=== PATIENT | female | born 1960 | race Hispanic/Latino ===

== ENCOUNTER 2018-01-13 10:30 | Emergency (ER) | payer BC ==
--- NOTE | 2018-01-13 12:16 | RAD REPORT ---
EXAM DESCRIPTION: RAD - Knee Right 3 View - 01/13/2018 11:55 am CLINICAL HISTORY: PAIN COMPARISON: No comparisons FINDINGS: Prominent tricompartmental osteoarthritic changes are noted greatest in the medial joint c ompartment and the patellofemoral joint. No fracture or dislocation is seen.
--- NOTE | 2018-01-13 12:24 | ER ---
Nurse's Notes [facility] Name: Smiley Sargent Age: 57 yrs Sex: Female : 1960 Arrival Date: 01/13/2018 Time: 10:32 Bed 30 Private MD: Chelle Ramirez H Diagnosis: Pain in right knee;Effusion, right knee Presentation: 01/13 10:38 Presenting complaint: Patient states: pain to R knee when stepped out of car started ch yesterday at 1430. since then the pain radiates up my thigh, into my lower back. I am liping because it hurts so much. Transition of care: patient was not received from another setting of care. Onset of symptoms was January 12, 2018 at 14:30. Risk Assessment: Do you want to hurt yourself or someone else? Patient reports no desire to harm self or others. Initial Sepsis Screen: Does the patient meet any 2 criteria? No. Patient's initial sepsis screen is negative. Does the patient have a suspected source of infection? No. Patient's initial sepsis screen is negative. Care prior to arrival: None. 10:38 Method Of Arrival: Ambulatory 10:38 Acuity: ARAM 4 Triage Assessment: 10:41 General: Appears in no apparent distress. comfortable, Behavior is calm, cooperative, ch appropriate for age. Pain: Complains of pain in low back area and right leg Pain currently is 7 out of 10 on a pain scale. Musculoskeletal: Circulation, motion, and sensation intact. Historical: - Allergies: 10:41 No Known Allergies; - Home Meds: 10:41 Excedrin Migraine 250-250-65 mg oral tab [Active]; Effexor Oral [Active]; losartan 25 ch mg oral tab 1 tab once daily [Active]; glimepiride 1 mg Oral tab 1 tab once daily [Active]; farciga-pill for blood sugar [Active]; - PMHx: 10:41 Diabetes - NIDDM; Hypertension; Depression; - PSHx: 10:41 Hysterectomy; ; Tennis elbow R; gastrib bypass; ch - Immunization history:: Adult Immunizations up to date, Flu vaccine is not up to date. - Social history:: Smoking status: Patient/guardian denies using tobacco, Patient uses alcohol, occasionally. - Ebola Screening: : Patient negative for fever greater than or equal to 101.5 degrees Fahrenheit, and additional compatible Ebola Virus Disease symptoms Patient denies exposure to infectious person Patient denies travel to an Ebola-affected area in the 21 days before illness onset No symptoms or risks identified at this time. - Family history:: not pertinent. Screenin:45 Abuse screen: Denies threats or abuse. Denies injuries from another. Nutritional iw screening: No deficits noted. Tuberculosis screening: No symptoms or risk factors identified. Fall Risk None identified. Assessment: 12:00 General: Appears in no apparent distress. comfortable, Behavior is calm, cooperative. iw Pain: Complains of pain in right knee. Neuro: Level of Consciousness is awake, alert, obeys commands, Oriented to person, place, time, situation. Cardiovascular: Patient's skin is warm and dry. Respiratory: Respiratory effort is even, unlabored. Derm: Skin is pink, warm \T\ dry. normal. Musculoskeletal: Range of motion: limited in right knee. Vital Signs: 10:41 BP 145 / 87; Pulse 78; Resp 16; Temp 97.8; Pulse Ox 99% on R/A; Weight 72.57 kg; Height ch 5 ft. 1 in. (154.94 cm); Pain 7/10; 10:41 Body Mass Index 30.23 (72.57 kg, 154.94 cm) ch ED Course: 10:32 Patient arrived in ED. sb2 10:33 Chelle Ramirez DO is Private Physician. sb2 10:39 Triage completed. ch 10:41 Arm band placed on left wrist. Patient placed in waiting room. ch 11:21 Didier Jacob MD is Attending Physician. caesar 11:33 Mari Lackey, PAUL is Primary Nurse. iw 11:55 XRAY Knee RIGHT 3 view In Process Unspecified. EDMS 12:00 Patient has correct armband on for positive identification. iw 12:23 Chelle Ramirez DO is Referral Physician. caesar 12:23 Cesar Proctor MD is Referral Physician. caesar 12:46 No provider procedures requiring assistance completed. Patient did not have IV access iw during this emergency room visit. Administered Medications: 12:40 Drug: Motrin 400 mg Route: PO; iw Outcome: 12:24 Discharge ordered by . caesar 12:47 Discharged to home ambulatory, with crutches, with family. iw 12:47 Condition: good 12:47 Discharge instructions given to patient, Instructed on discharge instructions, follow up and referral plans. medication usage, crutch walking, Demonstrated understanding of instructions, follow-up care, medications, crutch walking, Prescriptions given X 2. 12:48 Patient left the ED. iw Signatures: Dispatcher [employer] EDDanielle Kumar, Didier Cooper RN, ch, MD MD cha Williams, Irene, RN RN Chloé Thompson sb2
--- NOTE | 2018-01-13 12:25 | EDPHYS ---
Physician Documentation [facility] Name: Smiley Sargent Age: 57 yrs Sex: Female : 1960 Arrival Date: 01/13/2018 Time: 10:32 Bed 30 Private MD: Chelle Ramirez H ED Physician Didier Jacob HPI: 01/13 12:19 This 57 yrs old Female presents to ER via Ambulatory with complaints of Back caesar Pain, Leg Pain. 12:19 The patient presents with pain that is acute. caesar 12:20 The complaints affect the right knee. Context: The problem was sustained on a street or [facility] driveway. Onset: The symptoms/episode began/occurred yesterday. Modifying factors: The symptoms are alleviated by elevating leg, remaining still. Associated signs and symptoms: The patient has no apparent associated signs or symptoms. Onset: The symptoms/episode began/occurred yesterday. Historical: - Allergies: 10:41 No Known Allergies; ch - Home Meds: 10:41 Excedrin Migraine 250-250-65 mg oral tab [Active]; Effexor Oral [Active]; losartan 25 ch mg oral tab 1 tab once daily [Active]; glimepiride 1 mg Oral tab 1 tab once daily [Active]; farciga-pill for blood sugar [Active]; - PMHx: 10:41 Diabetes - NIDDM; Hypertension; Depression; ch - PSHx: 10:41 Hysterectomy; ; Tennis elbow R; gastrib bypass; ch - Immunization history:: Adult Immunizations up to date, Flu vaccine is not up to date. - Social history:: Smoking status: Patient/guardian denies using tobacco, Patient uses alcohol, occasionally. - Ebola Screening: : Patient negative for fever greater than or equal to 101.5 degrees Fahrenheit, and additional compatible Ebola Virus Disease symptoms Patient denies exposure to infectious person Patient denies travel to an Ebola-affected area in the 21 days before illness onset No symptoms or risks identified at this time. - Family history:: not pertinent. ROS: 12:20 Constitutional: Negative for fever, chills, and weight loss, Eyes: Negative for injury, caesar pain, redness, and discharge, ENT: Negative for injury, pain, and discharge, Neck: Negative for injury, pain, and swelling, Cardiovascular: Negative for chest pain, palpitations, and edema, Respiratory: Negative for shortness of breath, cough, wheezing, and pleuritic chest pain, Abdomen/GI: Negative for abdominal pain, nausea, vomiting, diarrhea, and constipation, Back: Negative for injury and pain, : Negative for injury, bleeding, discharge, and swelling, Skin: Negative for injury, rash, and discoloration, Neuro: Negative for headache, weakness, numbness, tingling, and seizure, Psych: Negative for depression, anxiety, suicide ideation, homicidal ideation, and hallucinations, Allergy/Immunology: Negative for hives, rash, and allergies, Endocrine: Negative for neck swelling, polydipsia, polyuria, polyphagia, and marked weight changes, Hematologic/Lymphatic: Negative for swollen nodes, abnormal bleeding, and unusual bruising. 12:20 MS/extremity: Positive for decreased range of motion, pain, swelling, tenderness, of the right knee. Exam: 12:20 Constitutional: This is a well developed, well nourished patient who is awake, alert, caesar and in no acute distress. Head/Face: Normocephalic, atraumatic. Eyes: Pupils equal round and reactive to light, extra-ocular motions intact. Lids and lashes normal. Conjunctiva and sclera are non-icteric and not injected. Cornea within normal limits. Periorbital areas with no swelling, redness, or edema. ENT: Nares patent. No nasal discharge, no septal abnormalities noted. Tympanic membranes are normal and external auditory canals are clear. Oropharynx with no redness, swelling, or masses, exudates, or evidence of obstruction, uvula midline. Mucous membranes moist. Neck: Trachea midline, no thyromegaly or masses palpated, and no cervical lymphadenopathy. Supple, full range of motion without nuchal rigidity, or vertebral point tenderness. No Meningismus. Chest/axilla: Normal chest wall appearance and motion. Nontender with no deformity. No lesions are appreciated. Cardiovascular: Regular rate and rhythm with a normal S1 and S2. No gallops, murmurs, or rubs. Normal PMI, no JVD. No pulse deficits. Respiratory: Lungs have equal breath sounds bilaterally, clear to auscultation and percussion. No rales, rhonchi or wheezes noted. No increased work of breathing, no retractions or nasal flaring. Abdomen/GI: Soft, non-tender, with normal bowel sounds. No distension or tympany. No guarding or rebound. No evidence of tenderness throughout. Back: No spinal tenderness. No costovertebral tenderness. Full range of motion. Female : Normal external genitalia. Skin: Warm, dry with normal turgor. Normal color with no rashes, no lesions, and no evidence of cellulitis. Neuro: Awake and alert, GCS 15, oriented to person, place, time, and situation. Cranial nerves II-XII grossly intact. Motor strength 5/5 in all extremities. Sensory grossly intact. Cerebellar exam normal. Normal gait. Psych: Awake, alert, with orientation to person, place and time. Behavior, mood, and affect are within normal limits. 12:20 Musculoskeletal/extremity: ROM: full active range of motion, full passive range of motion, limited active range of motion due to pain, limited passive range of motion due to pain, Circulation is intact in all extremities. Sensation intact. Compartment Syndrome exam of affected extremity: is normal. DVT Exam: negative Homans' sign noted on exam, no appreciated bluish discoloration, no erythema, no increased warmth, pain, swelling, tenderness, of the right knee. Vital Signs: 10:41 BP 145 / 87; Pulse 78; Resp 16; Temp 97.8; Pulse Ox 99% on R/A; Weight 72.57 kg; Height ch 5 ft. 1 in. (154.94 cm); Pain 7/10; 10:41 Body Mass Index 30.23 (72.57 kg, 154.94 cm) MDM: 11:21 Patient medically screened. [facility] 01/13 10:43 Order name: XRAY Knee RIGHT 3 view; Complete Time: 12:17 01/13 10:43 Order name: Ice pack; Complete Time: 10:43 01/13 12:19 Order name: Knee Immobilizer; Complete Time: 12:47 [facility] 01/13 12:19 Order name: Crutches; Complete Time: 12:47 [facility] Administered Medications: 12:40 Drug: Motrin 400 mg Route: PO; Disposition: 01/13/18 12:24 Discharged to Home. Impression: Pain in right knee, Effusion, right knee. - Condition is Stable. - Discharge Instructions: Joint Pain, Arthritis, Knee Effusion, Knee Pain, Knee Effusion, [id number], Arthritis, [id number]. - Prescriptions for Tylenol- Codeine #3 300-30 mg Oral Tablet - take 2 tablets by ORAL route every 6 hours As needed; 26 tablet. Motrin IB 200 mg Oral Tablet - take 2 tablet by ORAL route every 6 hours As needed as needed with food; 30 tablet. - Medication Reconciliation Form, Thank You Letter, Antibiotic Education, Prescription Opioid Use form. - Follow up: Chelle Ramirez DO; When: 2 - 3 days; Reason: Recheck today's complaints, Continuance of care, Re-evaluation by your physician. Follow up: Cesar Proctor MD; When: 2 - 3 days; Reason: Recheck today's complaints, Re-evaluation by your physician. - Problem is new. - Symptoms have improved. Signatures: Dispatcher [employer] EDDanielle Kumar, PAUL RN Didier Fay MD MD cha Williams, Irene, RN RN iw Corrections: (The following items were deleted from the chart) 12:48 12:24 01/13/2018 12:24 Discharged to Home. Impression: Pain in right knee; Effusion, iw right knee. Condition is Stable. Forms are Medication Reconciliation Form, Thank You Letter, Antibiotic Education, Prescription Opioid Use. Follow up: Chelle Ramirez; When: 2 - 3 days; Reason: Recheck today's complaints, Continuance of care, Re-evaluation by your physician. Follow up: Cesar Proctor; When: 2 - 3 days; Reason: Recheck today's complaints, Re-evaluation by your physician. Problem is new. Symptoms have improved. caesar
[2018-01-13] MEDS ORDERED: IBUPROFEN 400 MG TAB ONE (12:40)
== END 2018-01-13 12:48 | disposition home or self-care (01) ==
LOC: ER 10:30
DX: M25.461 Effusion, right knee (principal); I10 Essential (primary) hypertension; E11.9 Type 2 diabetes mellitus without complications; F32.9 Major depressive disorder, single episode, unspecified
CPT/HCPCS: 99284

== ENCOUNTER 2018-09-27 16:53 | Emergency (ER) | payer BC ==
--- NOTE | 2018-09-27 17:02 | EDPHYS ---
Physician Documentation [facility] Name: Smiley Sargent Age: 57 yrs Sex: Female : 1960 Arrival Date: 09/27/2018 Time: 16:54 Bed 12 Private MD: Chelle Ramirez H ED Physician Kashif Pyle HPI: 09/27 17:04 This 57 yrs old Female presents to ER via Ambulatory with complaints of kb Medication Refill. 17:04 The patient presents to the emergency department requesting refill(s) for: Effexor. The kb patient chronically suffers from anxiety and depression. The patient has experienced similar episodes in the past. The patient has not recently seen a physician. Pt reports she was seen by Dr Ramirez for a regular check-up and normally he writes all of her medications for 6 months until her next visit. States he forgot to fill her effexor so she ran out on . The pharmacy called his office for a refill on and Saturday, but he didn't respond. She made an appt for Saturday, but is having anxiety now and needs the medication. States she has been in [place] for the last month because her 2 sisters there 9 days apart and just returned on Saturday. Pt has been taking effexor for 14 years. currently takes 150mg per day. Historical: - Allergies: 17:00 No Known Allergies; sg - PMHx: 17:00 Depression; Diabetes - NIDDM; Hypertension; sg - Immunization history:: Adult Immunizations up to date. - Social history:: Smoking status: Patient/guardian denies using tobacco. - Ebola Screening: : Patient negative for fever greater than or equal to 101.5 degrees Fahrenheit, and additional compatible Ebola Virus Disease symptoms Patient denies exposure to infectious person Patient denies travel to an Ebola-affected area in the 21 days before illness onset No symptoms or risks identified at this time. ROS: 17:04 Constitutional: Negative for fever, chills, and weight loss, Neck: Negative for injury, kb pain, and swelling, Cardiovascular: Negative for chest pain, palpitations, and edema, Respiratory: Negative for shortness of breath, cough, wheezing, and pleuritic chest pain, Abdomen/GI: Negative for abdominal pain, nausea, vomiting, diarrhea, and constipation, Back: Negative for injury and pain, : Negative for injury, bleeding, discharge, and swelling, MS/Extremity: Negative for injury and deformity, Skin: Negative for injury, rash, and discoloration, Neuro: Negative for headache, weakness, numbness, tingling, and seizure. 17:04 Psych: Positive for anxiety, Negative for depression, drug dependence, alcohol dependence, auditory hallucinations, visual hallucinations, homicidal ideation, insomnia, suicide gesture, suicidal ideation. Exam: 17:04 Head/Face: Normocephalic, atraumatic. ENT: Nares patent. No nasal discharge, no kb septal abnormalities noted. Tympanic membranes are normal and external auditory canals are clear. Oropharynx with no redness, swelling, or masses, exudates, or evidence of obstruction, uvula midline. Mucous membranes moist. Neck: Trachea midline, no thyromegaly or masses palpated, and no cervical lymphadenopathy. Supple, full range of motion without nuchal rigidity, or vertebral point tenderness. No Meningismus. Chest/axilla: Normal chest wall appearance and motion. Nontender with no deformity. No lesions are appreciated. Cardiovascular: Regular rate and rhythm with a normal S1 and S2. No gallops, murmurs, or rubs. Normal PMI, no JVD. No pulse deficits. Respiratory: Lungs have equal breath sounds bilaterally, clear to auscultation and percussion. No rales, rhonchi or wheezes noted. No increased work of breathing, no retractions or nasal flaring. Abdomen/GI: Soft, non-tender, with normal bowel sounds. No distension or tympany. No guarding or rebound. No evidence of tenderness throughout. Skin: Warm, dry with normal turgor. Normal color with no rashes, no lesions, and no evidence of cellulitis. MS/ Extremity: Pulses equal, no cyanosis. Neurovascular intact. Full, normal range of motion. Neuro: Awake and alert, GCS 15, oriented to person, place, time, and situation. Cranial nerves II-XII grossly intact. Motor strength 5/5 in all extremities. Sensory grossly intact. Cerebellar exam normal. Normal gait. 17:04 Constitutional: The patient appears anxious, tearful Vital Signs: 16:59 BP 155 / 100; Pulse 81; Resp 17 S; Temp 98.3; Pulse Ox 98% on R/A; sg MDM: 16:55 Patient medically screened. kb 17:09 Data reviewed: vital signs, nurses notes. Data interpreted: Pulse oximetry: on room air kb is 98 %. Interpretation: normal. Counseling: I had a detailed discussion with the patient and/or guardian regarding: the historical points, exam findings, and any diagnostic results supporting the discharge/admit diagnosis, the need for outpatient follow up, a family practitioner, to return to the emergency department if symptoms worsen or persist or if there are any questions or concerns that arise at home. ED course: Pt educated to keep appt with Dr Ramirez on Saturday for medication refill. Pt given prescription for 4 days worth of effexor until she is able to get the new prescription filled. . Administered Medications: No medications were administered Disposition: 22:14 Co-signature as Attending Physician, Kashif Pyle MD Available for consultation at ps1 all times . Disposition: 09/27/18 17:01 Discharged to Home. Impression: Encounter for issue of repeat prescription. - Condition is Stable. - Discharge Instructions: Medicine Refill at the Emergency Department. - Prescriptions for Effexor XR 150 mg Oral capsule,extended release 24hr - take 1 capsule by ORAL route once daily; 4 capsule. - Medication Reconciliation Form, Thank You Letter, Antibiotic Education, Prescription Opioid Use form. - Follow up: Emergency Department; When: As needed; Reason: Worsening of condition. Follow up: Chelle Ramirez DO; When: 1 - 2 days; Reason: Recheck today's complaints, Continuance of care, Re-evaluation by your physician. Signatures: Addis Nguyen FNP-C FNP-Moiz Eli RN RN sg Smirch, Shelby, RN RN ss Singer, Phillip, MD MD ps1 Corrections: (The following items were deleted from the chart) 17:11 17:04 Pt reports she was seen by Dr Ramirez for a regular check-up and normally he writes kb all of her medications for 6 months until her next visit. States he forgot to fill her effexor so she ran out on . The pharmacy called his office for a refill on and Saturday, but he didn't respond. She made an appt for Saturday, but is having anxiety now and needs the medication. States she has been in [place] for the last month because her 2 sisters there 9 days apart and just returned on Saturday. . kb 17:43 17:01 09/27/2018 17:01 Discharged to Home. Impression: Encounter for issue of repeat ss prescription. Condition is Stable. Forms are Medication Reconciliation Form, Thank You Letter, Antibiotic Education, Prescription Opioid Use. Follow up: Emergency Department; When: As needed; Reason: Worsening of condition. Follow up: Chelle Ramirez; When: 1 - 2 days; Reason: Recheck today's complaints, Continuance of care, Re-evaluation by your physician. kb
--- NOTE | 2018-09-27 17:02 | ER ---
Nurse's Notes [facility] Name: Smiley Sargent Age: 57 yrs Sex: Female : 1960 Arrival Date: 09/27/2018 Time: 16:54 Bed 12 Private MD: Chelle Ramirez H Diagnosis: Encounter for issue of repeat prescription Presentation: 09/27 16:56 Presenting complaint: Patient states: I ran out of my Effexor medication, I spoke with sg about having my prescription refilled, I ran out of the medication on . I have been taking this medication for 14 years. Has an appointment on Saturday with to have the prescription refilled just concerned that because she has been out of the medication she wont be able to make it until saturday. Transition of care: patient was not received from another setting of care. Onset of symptoms was September 27, 2018. Risk Assessment: Do you want to hurt yourself or someone else? Patient reports no desire to harm self or others. Initial Sepsis Screen: Does the patient meet any 2 criteria? No. Patient's initial sepsis screen is negative. Does the patient have a suspected source of infection? No. Patient's initial sepsis screen is negative. Care prior to arrival: None. 16:56 Method Of Arrival: Ambulatory sg 16:56 Acuity: ARAM 5 sg Historical: - Allergies: 17:00 No Known Allergies; sg - PMHx: 17:00 Depression; Diabetes - NIDDM; Hypertension; sg - Immunization history:: Adult Immunizations up to date. - Social history:: Smoking status: Patient/guardian denies using tobacco. - Ebola Screening: : Patient negative for fever greater than or equal to 101.5 degrees Fahrenheit, and additional compatible Ebola Virus Disease symptoms Patient denies exposure to infectious person Patient denies travel to an Ebola-affected area in the 21 days before illness onset No symptoms or risks identified at this time. Vital Signs: 16:59 BP 155 / 100; Pulse 81; Resp 17 S; Temp 98.3; Pulse Ox 98% on R/A; sg ED Course: 16:54 Patient arrived in ED. as 16:54 Chelle Ramirez DO is Private Physician. as 16:55 Addis [facility]C [facility]. kb 16:55 Kashif Pyle MD is Attending Physician. kb 16:56 Arm band placed on. sg 16:59 Triage completed. sg 17:00 Chelle Ramirez DO is Referral Physician. kb 17:43 Lena Foley, PAUL is Primary Nurse. ss Administered Medications: No medications were administered Outcome: 17:01 Discharge ordered by MD. kb 17:43 Patient left the ED. ss Signatures: Addis Nguyen FNP-C FNP-Ckb Gay, Steven, RN RN Vanessa Napier as Lena Foley, PAUL RN ss
== END 2018-09-27 17:43 | disposition home or self-care (01) ==
LOC: ER 16:53
DX: Z76.0 Encounter for issue of repeat prescription (principal); F32.9 Major depressive disorder, single episode, unspecified; E11.9 Type 2 diabetes mellitus without complications; I10 Essential (primary) hypertension
CPT/HCPCS: 99281

== ENCOUNTER 2019-10-16 10:44 | Emergency (ER) | payer BC ==
--- NOTE | 2019-10-16 12:20 | RAD REPORT ---
EXAM DESCRIPTION: CTSpine Lumbar Wo Con10/16/2019 12:04 pm CLINICAL HISTORY: Back injury with back pain and radiculopathy status post fall COMPARISON: None TECHNIQUE: Computed axial tomography lumbar spine was obtained with coronal and sagittal reconstruct ion. All CT scans are performed using dose optimization technique as appropriate and may include automated exposure control or mA/KV adjustment according to patient size. FINDINGS: No fracture is seen. No dislocation is noted. Spondylosis involves L4-5 consisting of small disc bulge and facet hypertrophy. Vacuum phenomena invo lves the facet joints. Vacuum phenomena L5-S1 disc No spinal stenosis IMPRESSION: Negative for a lumbar fracture. If patient continues have symptoms to suggest spinal canal pathology MRI would be recommended
--- NOTE | 2019-10-16 12:23 | RAD REPORT ---
EXAM DESCRIPTION: CTThoracic Spine W/o Cont10/16/2019 12:00 pm CLINICAL HISTORY: Back injury with Back pain with radiculopathy status post fall COMPARISON: None TECHNIQUE: Computed axial tomography of thoracic spine was obtained with coronal and sagittal recons truction. All CT scans are performed using dose optimization technique as appropriate and may include automated exposure control or mA/KV adjustment according to patient size. FINDINGS: No fracture is seen. No dislocation is noted. No central spinal stenosis. IMPRESSION: Negative for a thoracic fracture If the patient has clinical symptoms to suggest spinal cord pathology then MRI would be recommended.
--- NOTE | 2019-10-16 12:45 | EDPHYS ---
Physician Documentation [facility] Name: Smiley Sargent Age: 58 yrs Sex: Female : 1960 Arrival Date: 10/16/2019 Time: 10:47 Bed 15 Private MD: Chelle Ramirez H ED Physician Rah Dye HPI: 10/15 11:34 This 58 yrs old Female presents to ER via Ambulatory with complaints of Back mh7 Pain. 11:34 The patient presents with pain and an injury. The symptoms are located in the thoracic mh7 area and lumbar area. Onset: The symptoms/episode began/occurred yesterday. Location: thoracic area and lumbar area. Associated signs and symptoms: Pertinent negatives: abdominal pain, chest pain, constipation, dysuria, fever, headache, hematuria, incontinence, nausea, numbness, tingling, urinary retention, vomiting, weakness. The problem was sustained during a fall, while walking. Modifying factors: The patient symptoms are alleviated by remaining still, the patient symptoms are aggravated by movement. Severity of symptoms: At their worst the symptoms were moderate, yesterday, in the emergency department the symptoms have improved, mildly. Patient states that she injured her back after she tripped and fell yesterday over a step while outside yesterday. She denies any head trauma, LOC, or other injuries. She denies any radiation of pain, numbness/tingling, weakness, bladder/bowel incontinence or retention. She denies any symptoms prior to falling.. Historical: - Allergies: 11:09 No Known Allergies; aa5 - PMHx: 11:09 Depression; Diabetes - NIDDM; Hypertension; Stage 4 liver failure; Fatty liver; Hernia; aa5 - Immunization history:: Adult Immunizations unknown. - Social history:: Smoking status: Patient reports the use of cigarette tobacco products, smokes one-half pack cigarettes per day. ROS: 11:34 Constitutional: Negative for fever, chills, and weight loss, Eyes: Negative for injury, mh7 pain, redness, and discharge, ENT: Negative for injury, pain, and discharge, Neck: Negative for injury, pain, and swelling, Cardiovascular: Negative for chest pain, palpitations, and edema, Respiratory: Negative for shortness of breath, cough, wheezing, and pleuritic chest pain, Abdomen/GI: Negative for abdominal pain, nausea, vomiting, diarrhea, and constipation, : Negative for injury, bleeding, discharge, and swelling, MS/Extremity: Negative for injury and deformity, Skin: Negative for injury, rash, and discoloration, Neuro: Negative for headache, weakness, numbness, tingling, and seizure, Psych: Negative for depression, anxiety, suicide ideation, homicidal ideation, and hallucinations, Allergy/Immunology: Negative for hives, rash, and allergies, Endocrine: Negative for neck swelling, polydipsia, polyuria, polyphagia, and marked weight changes, Hematologic/Lymphatic: Negative for swollen nodes, abnormal bleeding, and unusual bruising. Exam: 11:34 Constitutional: This is a well developed, well nourished patient who is awake, alert, mh7 and in no acute distress. Head/Face: Normocephalic, atraumatic. Eyes: Pupils equal round and reactive to light, extra-ocular motions intact. Lids and lashes normal. Conjunctiva and sclera are non-icteric and not injected. Cornea within normal limits. Periorbital areas with no swelling, redness, or edema. ENT: Nares patent. No nasal discharge, no septal abnormalities noted. Tympanic membranes are normal and external auditory canals are clear. Oropharynx with no redness, swelling, or masses, exudates, or evidence of obstruction, uvula midline. Mucous membranes moist. Neck: Trachea midline, no thyromegaly or masses palpated, and no cervical lymphadenopathy. Supple, full range of motion without nuchal rigidity, or vertebral point tenderness. No Meningismus. Chest/axilla: Normal chest wall appearance and motion. Nontender with no deformity. No lesions are appreciated. Cardiovascular: Regular rate and rhythm with a normal S1 and S2. No gallops, murmurs, or rubs. Normal PMI, no JVD. No pulse deficits. Respiratory: Lungs have equal breath sounds bilaterally, clear to auscultation and percussion. No rales, rhonchi or wheezes noted. No increased work of breathing, no retractions or nasal flaring. Abdomen/GI: Soft, non-tender, with normal bowel sounds. No distension or tympany. No guarding or rebound. No evidence of tenderness throughout. 11:34 Neuro: Awake and alert, GCS 15, oriented to person, place, time, and situation. Cranial nerves II-XII grossly intact. Motor strength 5/5 in all extremities. Sensory grossly intact. Cerebellar exam normal. Normal gait. Psych: Awake, alert, with orientation to person, place and time. Behavior, mood, and affect are within normal limits. 11:34 Back: pain, that is mild, of the lumbar area and thoracic area, ROM is painful, with flexion, normal spinal alignment noted, CVA tenderness, is absent, vertebral tenderness, is appreciated at lumbar area and thoracic area, muscle spasm, is not present, Straight leg raises: of both lower extremities does not illicit pain. Vital Signs: 11:07 BP 143 / 96; Pulse 89; Resp 18 S; Temp 98.4(O); Pulse Ox 97% on R/A; Weight 72.57 kg aa5 (R); Height 5 ft. 1 in. (154.94 cm) (R); Pain 7/10; 12:48 BP 130 / 79; Pulse 73; Resp 16 S; Pulse Ox 96% on R/A; ca1 11:07 Body Mass Index 30.23 (72.57 kg, 154.94 cm) aa5 MDM: 11:14 Patient medically screened. mh7 12:41 Differential diagnosis: Fracture Ligament Injury Osteoarthritis vertebral fracture, mh7 back contusion. Data reviewed: vital signs, nurses notes, radiologic studies, CT scan. Data interpreted: threat monitoring analyst: rate is 89 beats/min, rhythm is normal sinus rhythm, regular, Pulse oximetry: on room air is 97 %. Interpretation: normal. Counseling: I had a detailed discussion with the patient and/or guardian regarding: the historical points, exam findings, and any diagnostic results supporting the discharge/admit diagnosis, radiology results, the need for outpatient follow up. 10/16 07:13 ED course: Feels better, NAD, VSS, no focal neurological deficits. Discussed all test 7 results and findings with the patient and answered all of her questions. She will follow up with her doctor. She will return to the ED if worsening of symptoms or other concerns.. 10/15 11:28 Order name: CT Thoracic Spine Wo Cont; Complete Time: 12:38 mh7 10/15 11:28 Order name: CT Lumbar Spine Wo Con; Complete Time: 12:38 mh7 Administered Medications: No medications were administered Disposition: 10/16/19 12:44 Discharged to Home. Impression: Contusion of back wall of thorax, Low back pain. - Condition is Stable. - Discharge Instructions: Back Pain, Adult, Back Injury Prevention, [id number]. - Work release form, Medication Reconciliation Form, Thank You Letter, Antibiotic Education, Prescription Opioid Use form. - Follow up: Private Physician; When: 1 - 2 days; Reason: Worsening of condition, Re-evaluation by your physician. - Problem is new. - Symptoms have improved. Signatures: Dispatcher [employer] EDKY Aretha Lama RN RN aa5 Rah Dye MD MD mh7 Corrections: (The following items were deleted from the chart) 10/15 12:49 12:44 10/16/2019 12:44 Discharged to Home. Impression: Contusion of back wall of aa5 thorax; Low back pain. Condition is Stable. Forms are Medication Reconciliation Form, Thank You Letter, Antibiotic Education, Prescription Opioid Use. Follow up: Private Physician; When: 1 - 2 days; Reason: Worsening of condition, Re-evaluation by your physician. Problem is new. Symptoms have improved. mh7
--- NOTE | 2019-10-16 12:45 | ER ---
Nurse's Notes [facility] Name: Smiley Sargent Age: 58 yrs Sex: Female : 1960 Arrival Date: 10/16/2019 Time: 10:47 Bed 15 Private MD: Chelle Ramirez H Diagnosis: Contusion of back wall of thorax;Low back pain Presentation: 10/15 11:07 Chief complaint: Patient states: "I tripped and lost my balance and fell backwards aa5 yesterday". pt c/o back pain. Denies head injury. Coronavirus screen: Proceed with normal triage. Patient denies a cough. Patient denies shortness of breath or difficulty breathing. Patient denies measured and/or subjective temperature greater than 100.4F prior to today's visit. Patient denies travel on a cruise ship or to a country the [facility] currently lists as an affected area. Patient denies contact with known and/or suspected case of COVID-19. Ebola Screen: Patient negative for fever greater than or equal to 101.5 degrees Fahrenheit, and additional compatible Ebola Virus Disease symptoms. Initial Sepsis Screen: Does the patient meet any 2 criteria? No. Patient's initial sepsis screen is negative. Does the patient have a suspected source of infection? No. Patient's initial sepsis screen is negative. Risk Assessment: Do you want to hurt yourself or someone else? Patient reports no desire to harm self or others. Onset of symptoms was September 2019. 11:07 Method Of Arrival: Ambulatory aa5 11:07 Acuity: ARAM 4 aa5 Historical: - Allergies: 11:09 No Known Allergies; aa5 - PMHx: 11:09 Depression; Diabetes - NIDDM; Hypertension; Stage 4 liver failure; Fatty liver; Hernia; aa5 - Immunization history:: Adult Immunizations unknown. - Social history:: Smoking status: Patient reports the use of cigarette tobacco products, smokes one-half pack cigarettes per day. Screenin:10 Abuse screen: Denies threats or abuse. Nutritional screening: No deficits noted. aa5 Tuberculosis screening: No symptoms or risk factors identified. Fall Risk None identified. Assessment: 11:10 General: Appears uncomfortable, Behavior is calm, cooperative. Pain: Complains of pain aa5 in left mid back and right mid back Pain does not radiate. Pain currently is 7 out of 10 on a pain scale. Quality of pain is described as throbbing, Pain began 1 day ago. Is continuous, Aggravated by increased activity, repositioning. Neuro: Level of Consciousness is awake, alert, obeys commands, Oriented to person, place, time, situation. Cardiovascular: Heart tones S1 S2 present Rhythm is regular. Respiratory: Airway is patent Respiratory effort is even, unlabored, Respiratory pattern is regular, symmetrical. GI: No signs and/or symptoms were reported involving the gastrointestinal system. : No signs and/or symptoms were reported regarding the genitourinary system. EENT: No signs and/or symptoms were reported regarding the EENT system. Derm: Skin is pink, warm \\T\\ dry. Musculoskeletal: Range of motion: intact in all extremities. 11:20 Reassessment: Dr. Dye at bedside. aa5 12:34 Reassessment: Patient appears in no apparent distress at this time. Patient and/or ca1 family updated on plan of care and expected duration. Pain level reassessed. Patient is alert, oriented x 3, equal unlabored respirations, skin warm/dry/pink. 12:45 Reassessment: Patient is alert, oriented x 3, equal unlabored respirations, skin aa5 warm/dry/pink. Vital Signs: 11:07 BP 143 / 96; Pulse 89; Resp 18 S; Temp 98.4(O); Pulse Ox 97% on R/A; Weight 72.57 kg aa5 (R); Height 5 ft. 1 in. (154.94 cm) (R); Pain 7/10; 12:48 BP 130 / 79; Pulse 73; Resp 16 S; Pulse Ox 96% on R/A; ca1 11:07 Body Mass Index 30.23 (72.57 kg, 154.94 cm) aa5 ED Course: 10:47 Patient arrived in ED. mr 10:47 Chelle Ramirez DO is Private Physician. mr 10:50 Juan Jaramillo PA is PHCP. [facility] 10:50 Rah Dye MD is Attending Physician. [facility] 11:07 Arm band placed on. aa5 11:07 Patient has correct armband on for positive identification. aa5 11:09 Triage completed. aa5 11:10 Aretha Lmaa, RN is Primary Nurse. aa5 11:11 Rah Dye MD is Attending Physician. [facility] 12:00 CT Thoracic Spine Wo Cont In Process Unspecified. EDMS 12:00 CT Lumbar Spine Wo Con In Process Unspecified. EDMS 12:45 No provider procedures requiring assistance completed. Patient did not have IV access aa5 during this emergency room visit. Administered Medications: No medications were administered Outcome: 12:44 Discharge ordered by . [facility] 12:45 Discharged to home ambulatory. aa5 12:45 Condition: stable 12:45 Discharge instructions given to patient, Instructed on discharge instructions, follow up and referral plans. Demonstrated understanding of instructions, follow-up care. 12:49 Patient left the ED. aa5 Signatures: Dispatcher [employer] EDWY Juan Jaramillo PA PA jmm Rivera, Mary mr Aretha Lama, RN RN aa5 Magaly Das RN RN ca1 Rah Dye MD MD [facility]
[2019-10-16 13:35] VITALS: TEMP 98.4
[2019-10-16 13:37] VITALS: BP 130/79; O2SAT 96
== END 2019-10-16 12:49 | disposition home or self-care (01) ==
LOC: ER 10:44
DX: S20.229A Contusion of unspecified back wall of thorax, initial encounter (principal); W01.0XXA Fall on same level from slipping, tripping and stumbling without subsequent striking against object, initial encounter; Y93.01 Activity, walking, marching and hiking; Y92.9 Unspecified place or not applicable; I10 Essential (primary) hypertension; K72.90 Hepatic failure, unspecified without coma; F17.210 Nicotine dependence, cigarettes, uncomplicated
CPT/HCPCS: 72128; 72131; 99283